=== PATIENT | female | born 2000 | race African-American/Black ===

== ENCOUNTER 2023-05-25 22:38 | Emergency (ER) | payer OTHER, SELFPAY ==
[2023-05-25 22:46] VITALS: BP 162/108
[2023-05-25] MEDS: TYLENOL 1000 MG PO (23:27)
[2023-05-26 00:28] VITALS: BP 142/94
[2023-05-26 02:00] VITALS: BP 142/94
[2023-05-26] MEDS: DILAUDID 4 MG PO (02:43)
--- NOTE | 2023-05-26 03:08 | ED.GENMED ---
History of Present Illness
General
Chief Complaint: Oral/Mouth Problem
Source: patient and spouse
Exam Limitations: none
Time Seen by Provider: 05/26/23 00:50
Nursing documentation reviewed up to this point in time: agreed with
Travel History
Have you had any contact with someone who has COVID-19?: No
Do you have any symptoms of coronavirus? Fever > 100 degrees, chills, cough, shortness of breath, sore throat, loss of taste or smell, muscle aches, or headache?: No
History of Present Illness
History of Present Illness:
23-year-old female with past medical history of asthma presenting to the emergency department today with concerns of significant discomfort to the right lower molar. Pain is been worsening over the past few days did previously have symptoms a few
weeks ago treated with antibiotics. Antibiotics ran out 4 days ago and symptoms have been worsening since. Denies specific fevers does have radiating discomfort into her ear. Denies chest pain shortness of breath trouble swallowing or breathing.
Past History
Past History
ED Past Medical History: Asthma and Other (Murmur)
ED Past Surgical History: None
Social History
Tobacco: Vaping
Alcohol: None
Personal: Single
Living: with family
Employment: Employed
Review of Systems
Review of Systems
Allergies reviewed?: Yes
All Other Systems: ROS reviewed and negative except as documented in HPI and ROS
Phy Exam
Physical Exam
Physical Exam:
GENERAL: Alert , in no apparent distress
EYE: pupils equal and reactive
NECK: Supple, no significant adenopathy.
ENT: Right-sided mandibular premolar with moderate-sized cavity and hole mild swelling surrounding that area in the gum. o/p clr, mmm.
CARDIAC: Regular rate and rhythm .
LUNGS: Clear breath sounds bilaterally, no acute respiratory distress, no wheezes/rales/rhonchi
ABDOMEN: Soft, without focal tenderness, no r/g, no cvat
NEUROLOGICAL: Alert and oriented, no focal neuro deficits
SKIN: Warm and dry, skin intact.
MUSCULOSKELETAL: No edema, well perfused.
PSYCH: Normal and appropriate interaction.
Course
Orders/Labs/Results
Orders:
Orders
05/25/23 23:15
Acetaminophen [Tylenol] 1,000 mg .ROUTE .STK-MED ONE
05/25/23 23:27
Acetaminophen [Tylenol] 1,000 mg PO NOW STA
05/26/23 02:11
HYDROmorphone [Dilaudid] 4 mg PO NOW STA
05/26/23 03:10
Amoxicillin 875 mg/Clav 125 mg [Augmentin 875 mg/125 mg] 1 tablet PO NOW STA
05/26/23 03:34
Ketorolac [Toradol] 30 mg IM NOW STA
Vital Signs
Initial and Last Documented VS:
Initial Vital Signs
Temp Pulse Resp BP Pulse Ox
98.1 F 69 20 162/108 99
05/25/23 22:46 05/25/23 22:46 05/25/23 22:46 05/25/23 22:46 05/25/23 22:46
Last Documented Vital Signs
Temp Pulse Resp BP Pulse Ox
98.1 F 68 18 124/78 100
05/25/23 22:46 05/26/23 04:04 05/26/23 04:04 05/26/23 04:04 05/26/23 04:04
MDM/Problems Addressed
MDM/Problems Addressed:
23-year-old female presenting to the emergency department with likely pulpitis. No signs of complication no significant swelling or signs of abscess given pain medication as well as Augmentin and advised for close dental follow-up. Return
precautions given.
*Critical Care Note
Total Time (30-74mins, 75-104mins- exclusive of procedures): Not Applicable
ED Attending Note
-
Portions of this chart may have been created with voice recognition software.� Occasional wrong word or��sound alike� substitutions may have occurred due to the inherent limitations of voice recognition software.
Discharge Plan
Departure
Patient Disposition: Home (Routine Discharge)
Date of Disposition: 05/26/23
Time of Disposition: 03:34
Patient with high blood pressure during this ER visit?: No
Condition: Good
Covid-19: Not Applicable
Discharge Problem:
Acute pulpitis
Instructions: Dental Pain (DC)
Prescriptions:
New
amoxicillin-pot clavulanate 875-125 mg tablet
1 tab PO BID 7 Days Qty: 14 0RF
hydromorphone [Dilaudid] 4 mg tablet
4 mg PO Q6H PRN (Reason: Pain) Qty: 7 0RF
No Action
Advair HFA
1 inh inhalation DAILY
Flonase
1 spray inhalation DAILY
Rx Instructions:
nasal
Singulair
1 tab PO DAILY
Referrals:
UNKNOWN - PT DOES,NOT KNOW [Family Provider] -
Activity Restrictions/Additional Instructions:
You came to emergency department today with concerns of dental discomfort. Please take Augmentin twice daily over the next 7 days and follow-up closely with dental for further assessment. You can also take Dilaudid 1 tab every 4-6 hours as needed
for severe pain. Please do not drive or operate machinery while taking this medication, can cause drowsiness. Return to the emergency department for any worsening, new or concerning symptoms.
Interventions
Interventions:
*Risk Screen - Suicide Last Done: 05/25/23 22:46
*General Assessment Last Done: 05/25/23 22:46
*Neglect/Abuse Screening Last Done: 05/25/23 22:46
ED- Fall Risk Assessment Last Done: 05/25/23 22:46
*ED COVID-19 Vaccine History Last Done: 05/25/23 22:46
*Nursing Disposition Last Done: 05/26/23 04:00
Discharge Date and Time
Discharge Date/Time: 05/26/23 04:04
[2023-05-26] MEDS: AUGMENTIN 875 MG/125 MG 1 TABLET PO (03:17)
[2023-05-26] MEDS: TORADOL 30 MG IM (03:56)
[2023-05-26 04:04] VITALS: BP 124/78
== END 2023-05-26 04:04 | disposition home or self-care (01) ==
LOC: EMR 22:38
PROVIDERS: EMERGENCY PHYSICIAN Emergency Medicine
DX: K04.01 Reversible pulpitis (principal); K08.89 Other specified disorders of teeth and supporting structures; J45.909 Unspecified asthma, uncomplicated; R01.1 Cardiac murmur, unspecified; F17.290 Nicotine dependence, other tobacco product, uncomplicated
CPT/HCPCS: 99284; 96372

== ENCOUNTER 2024-11-03 13:04 | Emergency (ER) | payer OTHER, SELFPAY ==
[2024-11-03 13:07] VITALS: BP 170/100
[2024-11-03 13:35] LABS: Hematocrit 41.2 % (37.0-47.0); Hemoglobin 14.5 g/dL (12.0-16.0); Mean Corp Hgb Conc. 35.2 g/dL (33.0-37.0); Mean Corpuscular Volume 85.8 fL (81.0-99.0); Nucleated Red Blood Cells % 0 %; Platelet Count 296 10^3/uL (130-400); Red Cell Dist. Width 12.6 % (11.5-14.5)
[2024-11-03 13:40] LABS: HCG, Serum Qualitative Screen Negative
[2024-11-03 13:56] LABS: Urine Character Clear (Clear)
[2024-11-03 14:14] LABS: ALT (SGPT) 19 U/L (0-35); AST (SGOT) 25 U/L (14-36); Albumin 4.7 g/dl (3.5-5.0); Alkaline Phosphatase 49 U/L (38-126); Blood Urea Nitrogen 13 mg/dl (7-17); Calcium 9.8 mg/dl (8.4-10.2); Carbon Dioxide 19 mmol/L (22-30); Chloride 111 mmol/L (98-107); Glucose 108 mg/dl (70-99); Potassium 4.2 mmol/L (3.5-5.1); Sodium 139 mmol/L (135-145); Total Protein 8.3 g/dl (6.3-8.2); Urine White Cell 0-2 /HPF (0-5); eGFR > 60.00
--- NOTE | 2024-11-03 15:38 | ED.GENMED ---
History of Present Illness
<Nahomy Guzman MD, Resident - Last Filed: 11/03/24 18:05>
General
Chief Complaint: Flank Pain
Source: patient
Exam Limitations: none
Time Seen by Provider: 11/03/24 15:15
Nursing documentation reviewed up to this point in time: agreed with
History of Present Illness
History of Present Illness:
Ms. Carlotta Esposito is a 23-year-old female with a past medical history of left back musculoskeletal pain and asthma, who is presenting with 2 days of left flank pain.
She she has had waxing and waning left back pain for 2 years since she felt a spontaneous pop while sitting 1 day. Naproxen has helped, as well as massage gun and heat pad. The pain has increased during the last 2 days, such that she could not
stand straight/support her upper back while brushing her teeth. She felt the pain radiate towards the side and front when she abducts her left arm. She states the pain has made it difficult for her to sleep.
Past History
<Nahomy Guzman MD, Resident - Last Filed: 11/03/24 18:05>
Past History
ED Past Medical History: Asthma, Other (Murmur) and Other ( she denies a history of kidney stones)
ED Past Surgical History: None
Social History
Tobacco: Vaping
Alcohol: None
Personal: Single
Living: with family
Employment: Employed
Review of Systems
<Nahomy Guzman MD, Resident - Last Filed: 11/03/24 18:05>
Review of Systems
Constitutional: Reports no symptoms
ABD/GI: Reports no symptoms (She denied changes in bowel movements; no diarrhea or abdominal pain.)
: Reports other (She endorses history of menorrhagia; he has not been diagnosed with other genitourinary conditions. Her current menses is lasting 2-1/2 weeks and is turning brown from red)
Musculoskeletal: Reports back pain (She is unsure if the pain is skeletal or muscular in origin)
Phy Exam
<Nahomy Guzman MD, Resident - Last Filed: 11/03/24 18:05>
Physical Exam
Physical Exam:
General: Well-appearing in no distress; reading a book
MSK:
Mild tenderness to palpation at the left upper back and side.
Tenderness greater when bending to right side compared to bending to left.
Pain reproduced with lifting left arm, but not right arm.
No tenderness to hip flexion extension or abduction bilaterally.
Mild tenderness to twisting trunk clockwise and counterclockwise.
Pulmonary Exam
Pulmonary Exam: no respiratory distress
Skin Exam
Skin Exam: normal color (No rash or vesicles)
Course
<Nahomy Guzman MD, Resident - Last Filed: 11/03/24 18:05>
Orders/Labs/Results
Orders:
Orders
11/03/24 13:08
Test Result ONCE
11/03/24 13:17
CBC/With Diff [Complete Blood Count/With Diff] Urgent
CMP [Comprehensive Metabolic Panel] Urgent
HCG, Serum Qualitative Screen Urgent
Urinalysis Reflex To Culture Urgent
Date Specimen was Collected: 11/03/24
Time Specimen was Collected: 13:08
Urine Microscopic Reflex Cult Urgent
11/03/24 16:20
CR Chest - 2 Views Urgent
Comment:
Reason For Exam: Left mid thoracic back pain; evaluate ribs/spine
11/03/24 16:26
US Abdomen Complete/Upper Urgent
Comment:
Reason For Exam: Attn spleen and L kidney for L flank pain
Abnormal Lab Results
11/03/24
13:17
Chloride 111 H mmol/L
(98-107)
Carbon Dioxide 19 L mmol/L
(22-30)
Glucose 108 H mg/dl
(70-99)
Total Protein 8.3 H g/dl
(6.3-8.2)
Ur Occult Blood Reflex 3+ A
(Negative)
Urine RBC 3-6 A /HPF
(0-2)
11/03/24 13:17
11/03/24 13:17
Vital Signs
Initial and Last Documented VS:
Initial Vital Signs
Temp Pulse Resp BP Pulse Ox
97.7 F 89 17 170/100 99
11/03/24 13:07 11/03/24 13:07 11/03/24 13:07 11/03/24 13:07 11/03/24 13:07
Last Documented Vital Signs
Temp Pulse Resp BP Pulse Ox
97.7 F 67 18 138/88 98
11/03/24 13:07 11/03/24 15:48 11/03/24 15:48 11/03/24 15:48 11/03/24 15:48
<Lamont Esquivel MD - Last Filed: 11/03/24 17:59>
Orders/Labs/Results
Orders:
Orders
11/03/24 13:08
Test Result ONCE
11/03/24 13:17
CBC/With Diff [Complete Blood Count/With Diff] Urgent
CMP [Comprehensive Metabolic Panel] Urgent
HCG, Serum Qualitative Screen Urgent
Urinalysis Reflex To Culture Urgent
Date Specimen was Collected: 11/03/24
Time Specimen was Collected: 13:08
Urine Microscopic Reflex Cult Urgent
11/03/24 16:20
CR Chest - 2 Views Urgent
Comment:
Reason For Exam: Left mid thoracic back pain; evaluate ribs/spine
11/03/24 16:26
US Abdomen Complete/Upper Urgent
Comment:
Reason For Exam: Attn spleen and L kidney for L flank pain
Abnormal Lab Results
11/03/24
13:17
Chloride 111 H mmol/L
(98-107)
Carbon Dioxide 19 L mmol/L
(22-30)
Glucose 108 H mg/dl
(70-99)
Total Protein 8.3 H g/dl
(6.3-8.2)
Ur Occult Blood Reflex 3+ A
(Negative)
Urine RBC 3-6 A /HPF
(0-2)
11/03/24 13:17
11/03/24 13:17
Vital Signs
Initial and Last Documented VS:
Initial Vital Signs
Temp Pulse Resp BP Pulse Ox
97.7 F 89 17 170/100 99
11/03/24 13:07 11/03/24 13:07 11/03/24 13:07 11/03/24 13:07 11/03/24 13:07
Last Documented Vital Signs
Temp Pulse Resp BP Pulse Ox
97.7 F 67 18 138/88 98
11/03/24 13:07 11/03/24 15:48 11/03/24 15:48 11/03/24 15:48 11/03/24 15:48
<Nahomy Guzman MD, Resident - Last Filed: 11/03/24 18:05>
MDM/Problems Addressed
Differential Diagnosis Includes:
Musculoskeletal left upper back pain
Left renal stone
Shingles: Unlikely given no rash
Pneumothorax given patient has asthma and could have a fractured rib
MDM/Problems Addressed:
Chest x-ray negative for rib fracture or other musculoskeletal injury
Focused abdominal ultrasound negative for renal stone or spleen injury. Diffuse hepatic steatosis demonstrated.
Offered analgesia but patient declined
Urinalysis positive for blood, which may be due to patient currently menstruating
Back pain is likely muscular in origin.
<Nahomy Guzman MD, Resident - Last Filed: 11/03/24 18:05>
*Pulse Oximetry
SaO2: 99
Patient hypoxic: no
*Critical Care Note
Total Time (30-74mins, 75-104mins- exclusive of procedures): Not Applicable
<Lamont Esquivel MD - Last Filed: 11/03/24 17:59>
Update Note
Update Note:
Patient given a copy of CT report for follow-up of her liver issue. Medically stable for discharge otherwise. NSAIDs and primary care follow-up
ED Attending Note
<Nahomy Guzman MD, Resident - Last Filed: 11/03/24 18:05>
-
Portions of this chart may have been created with voice recognition software.� Occasional wrong word or��sound alike� substitutions may have occurred due to the inherent limitations of voice recognition software.
<Lamont Esquivel MD - Last Filed: 11/03/24 17:59>
ED Attending Note
Patient seen and examined by attending physician: Yes
I performed a history and physical exam of patient and discussed management with resident, I reviewed resident's note and agree with documented findings and plan of care.: Yes
ED Attending Note:
24-year-old female complaining of left flank pain. Started a day plus ago. No preceding pain management. Patient likes to avoid medications. Pain is positional worse with twisting turning coughing. No shortness of breath. No pleuritic pain.
No fever or chills. No urinary symptoms. She is on her menses now which is normal. She has had this intermittently for over a year. It will typically last a month or 2 and then go away for a month or 2.
On exam patient is nontoxic in no distress. Warm and dry. Perfusing well. She has no flank rash. Lungs are clear and equal. No true CVA tenderness. Heart regular rate and rhythm no murmur. Abdomen soft and nontender. No liver or spleen
palpable. Extremities are warm and dry and perfusing well.
Labs are stable. Urine with trace blood but on her menses. All other testing unremarkable. Differential would include kidney stone. Pyelonephritis. Splenic issue. Musculoskeletal. Highly doubt any direct kidney issue with no fever chills
urinary symptoms. We will get an ultrasound. Highly doubt a splenic issue. I cannot palpate the spleen. She is no left upper quadrant tenderness. This is likely musculoskeletal. If ultrasound and chest x-ray are stable she will be discharged
to follow-up
Discharge Plan
Departure
Patient Disposition: Home (Routine Discharge)
Date of Disposition: 11/03/24
Time of Disposition: 17:53
Patient with high blood pressure during this ER visit?: Yes
Condition: Good
Discharge Problem:
Muscle strain of left upper back
Instructions: Metabolic dysfunction-associated steatotic liver disease, Flank Pain (DC), BLOOD PRESSURE
Prescriptions:
No Action
Advair HFA
1 inh inhalation DAILY
Flonase
1 spray inhalation DAILY
Rx Instructions:
nasal
Singulair
1 tab PO DAILY
amoxicillin-pot clavulanate 875-125 mg tablet
1 tab PO BID 7 Days Qty: 14 0RF
hydromorphone [Dilaudid] 4 mg tablet
4 mg PO Q6H PRN (Reason: Pain) Qty: 7 0RF
Referrals:
Shahida Hair DO [Family Provider, Family Practice]
Activity Restrictions/Additional Instructions:
Dear Carlotta, you came to the ED for left back pain that radiated to the your side. Your ribs kidneys and spleen were normal on imaging but fatty liver disease was noted.
Please follow-up in 2 to 3 days with your primary care provider for further monitoring of your left back pain and steatosis (fatty liver disease).
Interventions
Interventions:
*Risk Screen - Suicide Last Done: 11/03/24 13:09
*General Assessment Last Done: 11/03/24 13:09
*Neglect/Abuse Screening Last Done: 11/03/24 13:09
*ED COVID-19 Vaccine History Last Done: 11/03/24 13:09
QC-Lgqiak-Ektgpirvou Assessment Last Done: 11/03/24 15:47
ED-Female Genitourinary Assessment Last Done: 11/03/24 15:47
Discharge Date and Time
Print Language: GUINEAN
[2024-11-03 15:46] VITALS: BMI 37.7
[2024-11-03 15:48] VITALS: BP 138/88
== END 2024-11-03 18:08 | disposition home or self-care (01) ==
LOC: EMR 13:04
PROVIDERS: Emergency Medicine; EMERGENCY PHYSICIAN Emergency Medicine; FAMILY PHYSICIAN Family Medicine
DX: S29.012A Strain of muscle and tendon of back wall of thorax, initial encounter (principal); X58.XXXA Exposure to other specified factors, initial encounter; J45.909 Unspecified asthma, uncomplicated; F17.290 Nicotine dependence, other tobacco product, uncomplicated
CPT/HCPCS: 99284; 71046; 76700; 80053; 81003; 81015; 84703; 85025